=== PATIENT | male | born 1925 | race Caucasian/White ===

== ENCOUNTER 2016-04-05 09:07 | Emergency (ER) | payer OTHER, MEDICARE ==
[~2016-04-05] VITALS: Ht 182.9 cm; Wt 65.0 kg
[~2016-04-05 09:07] MED LIST: ACET-1256 PO; CHOL100010 PO; CYAN10005 PO; DIPH25CA65 PO; FERR325T51 PO; FIBER PO; HYDR-5688 PO; LEVO100T7 PO; LPR25 PO; METO25TA56 PO; MISCCAP80 PO; MULT-506 PO; NITR0.4S UT; PANT40TA PO; TAMS0.4C38 PO
[2016-04-05 09:15] VITALS: TEMP 36.8; Ht 182.9 cm; Wt 65.0 kg
[2016-04-05] MEDS ORDERED: SODIUM CHLORIDE 0.9% 500ML 500 ML IV STA ×2 (09:29→11:18)
[2016-04-05 09:53] LABS: MEAN CELL VOLUME 103.2 fL (80-100); MEAN CORPUSCULAR HEMOGLOBIN 36.5 pg (25-34); MEAN CORPUSCULAR HGB CONC 35.4 g/dl (32-36); MEAN PLATELET VOLUME 10.6 fL (7.4-10.4); PLATELET COUNT 127 K/uL (130-400); RED BLOOD COUNT 2.52 M/uL (4.7-6.1); WHITE BLOOD COUNT 6.66 K/uL (4.8-10.8)
--- NOTE | 2016-04-05 10:08 | DIAGNOSTIC IMAGING REPORT ---
TWO VIEW CHEST CLINICAL HISTORY: Cough. Dyspnea. FINDINGS: PA and lateral chest radiographs are compared to study dated 01/23/2016. Correlation is made with chest CT dated 01/19/2014. The PA view is degraded by patient rotation. The heart is enlarged and there is atherosclerotic calcification of the thoracic aorta. The pulmonary vasculature is noncongested. Emphysema and chronic interstitial thickening is similar to previous. No airspace consolidation or pleural effusion is identified. Apical scarring is noted. There is no pneumothorax. The skeletal structures are osteopenic. Degenerative change is noted in the thoracic spine. IMPRESSION: Cardiomegaly and emphysema with no active disease in the chest. Electronically signed by: Jaguar Lombardo M.D. 04/05/2016 10:06 AM Dictated Date/Time: 04/05/2016 10:04 AM
[2016-04-05 10:10] LABS: BUN/CREATININE RATIO 10.6 (10-20); CALCIUM 8.8 mg/dl (8.5-10.1); CREATININE 2.2 mg/dl (0.60-1.40); POTASSIUM 3.8 mmol/L (3.5-5.1)
[2016-04-05] MEDS ORDERED: CHOL1TAB53 PO (10:12)
[2016-04-05] MEDS ORDERED: VSNOPS OPB (10:16)
[2016-04-05] MEDS ORDERED: BENZONATATE 100MG CAP PO ONE (10:30)
[2016-04-05 10:33] LABS: ANISOCYTOSIS PRESENT; BASO % 0.6 %; BASO ABS # 0.04 K/uL (0-0.2); COMPLETE YES; EOS % 0.6 %; IG% 0.3 %; LYMPH % 34.5 %; MONO % 21.8 %; NEUT % 42.2 %; ROULEAUX 2+
[2016-04-05] MEDS ORDERED: LEVOFLOXACIN 250 MG TAB PO ONE (10:45)
[2016-04-05] MEDS ORDERED: LEVO250T47 PO (11:57)
[2016-04-05] MEDS ORDERED: BENZ100C18 PO (11:57)
[2016-04-05 12:23] VITALS: BP 152/79; PULSE 85; O2SAT 97
--- NOTE | 2016-04-05 15:19 | EMERGENCY ROOM VISIT NOTE ---
History Report prepared by Fer: Bessie Mejia Under the Supervision of: Dr. Andre Roman D.O. First contact with patient: 09:20 Chief Complaint: COUGH Stated Complaint: COUGH,SOB-BAD,CHEST CONGESTION History of Present Illness The patient is a 89 year old male who presents to the Emergency Room with complaints of a worsening productive cough that started two or three days ago. The sputum is yellow in color. The patient's states that he started experiencing rhinorrhea and sinus congestion 6 days ago. He is also experiencing shortness of breath and occasional nausea. He denies fevers greater than 100.4, chest pain, pain or burning with urination, and lower extremity edema. The patient's adds that he has a history of bronchitis and pneumonia. He denies any history of asthma or COPD. patient does have a history of A. fib but is not on any anticoagulation secondary to aggressive nosebleeds. Source of History: patient, spouse/significant other () Onset: two or three days ago Position: chest Quality: other (productive cough with yellow sputum) Timing: worsening Associated Symptoms: + SOB, + nausea, No chest pain, No fevers (greater than 100.4), No urinary symptoms (pain or burning with urination) Note: no lower extremity edema Review of Systems See HPI for pertinent positives & negatives. A total of 10 systems reviewed and were otherwise negative. Past Medical & Surgical Medical Problems: (1) Atrial fibrillation (2) Chronic back pain (3) Chronic osteoarthritis (4) Gastroesophageal reflux disease (5) GI bleed (6) Hernia repair (7) Hypothyroidism (8) peptic ulcer disease (9) Post traumatic stress disorder (PTSD) (10) Symptomatic anemia Family History Cancer Hypertension Lung disease Social History Smoking Status: Former Smoker Alcohol Use: none Marital Status: Housing Status: lives with family Occupation Status: retired Current/Historical Medications Scheduled Benzonatate (Tessalon Perles), 100 MG PO TID Cholecalciferol (D 1000), 1,000 UNIT PO 2XWK Cyanocobalamin (Vitamin B-12), 1,000 MCG PO QAM Fiber Laxative (Fiber Laxative), 1,000 UNIT PO QAM Levofloxacin (Levaquin), 250 MG PO DAILY Levothyroxine Sodium (Levothyroxine Sodium), 100 MCG PO QAM Metoprolol Tartrate (Lopressor), 25 MG PO QAM Multivitamin (Multivitamin), 1 TAB PO 2XWK Pantoprazole (Protonix), 40 MG PO QAM Probiotic Product (Probiotic), 1 CAP PO QAM Tamsulosin Hcl (Flomax), 0.4 MG PO QPM Scheduled PRN Acetaminophen (Tylenol), 500 MG PO TID PRN for Pain Diphenhydramine Hcl (Benadryl Allergy), 1 CAP PO DAILY PRN for ALLERGIES Hydrocodone/Acetaminophen 5MG/325MG ([place] 5MG/325MG), 1 TABLET PO Q4 PRN for Pain Nitroglycerin (Nitrostat), 0.4 MG UT UD PRN for Chest Pain Tetrahydrozoline Hcl (Ophth) (Visine), 2 DROPS OPB DAILY PRN for ITCHY EYES Allergies Coded Allergies: BEE STING (Verified Allergy, Mild, HIVES, SWELLING, TROUBLE BREATHING, ) Penicillins (Verified Allergy, Mild, UNKNOWN, 04/05/16) Aspirin (Verified Allergy, Unknown, contraindicated d/t hx massive bleed , 04/05/16) Ibuprofen (Verified Allergy, Unknown, contraindicated d/t hx massive blood, 04/05/16) Iodinated Diagnostic Agents (Verified Allergy, Unknown, ANAPHYLAXIS, ) Oxycodone (Verified Allergy, Unknown, CONFUSED, 04/05/16) Zolpidem (Unverified Adverse Reaction, Unknown, SEE COMMENT, 04/05/16) PT'S STATED THAT "HE SLEEP WALKS, MENTAL STATUS CHANGES, GETS AGGITATED) Uncoded Allergies: COPPERHEAD SNAKE (Allergy, Unknown, UNKNOWN, 04/05/16) Physical Exam Vital Signs Date Time Temp Pulse Resp B/P Pulse Ox O2 Delivery O2 Flow Rate FiO2 04/05/16 12:23 85 20 152/79 97 04/05/16 11:04 92 20 145/90 92 Room Air 04/05/16 10:38 104 20 117/86 97 Room Air 04/05/16 09:15 36.8 85 20 128/62 96 Room Air Physical Exam GENERAL: alert, sitting up in bed, disheveled appearing, well nourished, mild distress, non-toxic EYE EXAM: normal conjunctiva OROPHARYNX: no exudate, no erythema, lips, buccal mucosa, and tongue normal and mucous membranes are moist NECK: supple, no nuchal rigidity, no adenopathy, non-tender LUNGS: Clear to auscultation. Normal chest wall mechanics HEART: no murmurs, S1 normal and S2 normal ABDOMEN: abdomen soft, non-tender, normo-active bowel sounds, no masses, no rebound or guarding. BACK: Back is symmetrical on inspection and there is no deformity, no midline tenderness, no CVA tenderness. SKIN: no rashes and no bruising UPPER EXTREMITIES: upper extremities are grossly normal. LOWER EXTREMITIES: No pitting edema, calves equal bilaterally. NEURO EXAM: Normal sensorium, cranial nerves II-XII grossly intact, normal speech, no gross weakness of arms, no gross weakness of legs. Medical Decision & Procedures ER Provider Diagnostic Interpretation: X-ray results per the radiologist and my interpretation. TWO VIEW CHEST IMPRESSION: Cardiomegaly and emphysema with no active disease in the chest. Electronically signed by: Jaguar Lombardo M.D. 04/05/2016 10:06 AM Dictated Date/Time: 04/05/2016 10:04 AM Laboratory Results 04/05/16 09:35 Red Blood Count 2.52, Mean Corpuscular Volume 103.2, Mean Corpuscular Hemoglobin 36.5, Mean Corpuscular Hemoglobin Concent 35.4, Mean Platelet Volume 10.6, Neutrophils (%) (Auto) 42.2, Lymphocytes (%) (Auto) 34.5, Monocytes (%) ( Auto) 21.8, Eosinophils (%) (Auto) 0.6, Basophils (%) (Auto) 0.6, Neutrophils # (Auto) 2.81, Lymphocytes # (Auto) 2.30, Monocytes # (Auto) 1.45, Eosinophils # ( Auto) 0.04, Basophils # (Auto) 0.04 04/05/16 09:35 Test 04/05/16 09:35 04/05/16 09:45 White Blood Count 6.66 K/uL (4.8-10.8) Red Blood Count 2.52 M/uL (4.7-6.1) Hemoglobin 9.2 g/dL (14.0-18.0) Hematocrit 26.0 % (42-52) Mean Corpuscular Volume 103.2 fL (80-100) Mean Corpuscular Hemoglobin 36.5 pg (25-34) Mean Corpuscular Hemoglobin Concent 35.4 g/dl (32-36) Platelet Count 127 K/uL (130-400) Mean Platelet Volume 10.6 fL (7.4-10.4) Neutrophils (%) (Auto) 42.2 % Lymphocytes (%) (Auto) 34.5 % Monocytes (%) (Auto) 21.8 % Eosinophils (%) (Auto) 0.6 % Basophils (%) (Auto) 0.6 % Neutrophils # (Auto) 2.81 K/uL (1.4-6.5) Lymphocytes # (Auto) 2.30 K/uL (1.2-3.4) Monocytes # (Auto) 1.45 K/uL (0.11-0.59) Eosinophils # (Auto) 0.04 K/uL (0-0.5) Basophils # (Auto) 0.04 K/uL (0-0.2) RDW Standard Deviation 51.2 fL (36.4-46.3) RDW Coefficient of Variation 13.5 % (11.5-14.5) Immature Granulocyte % (Auto) 0.3 % Immature Granulocyte # (Auto) 0.02 K/uL (0.00-0.02) Anisocytosis PRESENT Rouleau 2+ Anion Gap 10.0 mmol/L (3-11) Est Creatinine Clear Calc Drug Dose 20.9 ml/min Estimated GFR () 29.7 Estimated GFR (Non- 25.6 BUN/Creatinine Ratio 10.6 (10-20) Calcium Level 8.8 mg/dl (8.5-10.1) Troponin I < 0.015 ng/ml (0-0.045) Influenza Type A Antigen Neg for Influ A (NEG) Influenza Type B Antigen Neg for Influ B (NEG) Laboratory results per my review. Medications Administered Medications (Trade) Dose Ordered Sig/Char Route Start Time Stop Time Status Last Admin Dose Admin Sodium Chloride (Nss 500ml) 500 ml @ 999 mls/hr Q31M STAT IV 04/05/16 09:29 04/05/16 09:59 DC 04/05/16 09:41 999 MLS/HR Benzonatate (Tessalon Perles Cap) 100 mg NOW ONCE PO 04/05/16 10:30 04/05/16 10:31 DC 04/05/16 11:05 100 MG Levofloxacin 500 mg 500 mg NOW ONCE PO 04/05/16 10:45 04/05/16 10:46 DC 04/05/16 11:05 500 MG Sodium Chloride (Nss 500ml) 500 ml @ 999 mls/hr Q31M STAT IV 04/05/16 11:18 04/05/16 11:48 DC 04/05/16 11:33 999 MLS/HR ECG Indication: SOB/dyspnea Rate (beats per minute): 163 Rhythm: atrial fibrillation Findings: PVC, left axis deviation Comparison ECG Date: 01/23/2016 Change: Atrial fibrillation has replaced sinus rhythm. Repeat EKG on 04/05/2016 showed sinus tachycardia, rate of 101, normal axis, PVC , no change from 01/18/2016 ED Course ED COURSE: Vital signs were reviewed and showed normal. The patients medical record was reviewed The above diagnostic studies were performed and reviewed. ED treatments and interventions as stated above. 0923: The patient was evaluated in room B4. A complete history and physical examination was performed. 0929: Ordered Sodium Chloride 500 ml @ 999 mls/hr IV 1028: I reassessed and updated the patient. He is doing ok. 1030: Ordered Benzonatate 100 mg PO 1045: Ordered Levofloxacin 500 mg PO 1102: I updated the patient and his family. They said not anticoagulation because he has terrible nosebleeds. 1118: Ordered Sodium Chloride 500 ml @ 999 mls/hr IV 1154: Upon reevaluation, the patient is doing well. I discussed my findings with the patient and he understands and agrees with the treatment plan. Based on the patients age, coexisting illnesses, exam and lab findings the decision to treat as an outpatient was made. The patient remained stable while under my care. The patient appeared well at the time of discharge. Medical Decision Differential diagnoses includes but is not limited to pneumonia, bronchitis, COPD/Asthma exacerbation, pneumothorax, pulmonary embolism, congestive heart failure, acute coronary syndrome. Upon review, the patient does not take aspirin due to persistent nosebleeds. Discussed with pharmacy for Levaquin dosing with renal function, recommended 250 daily. Patient is an 89-year-old male who presents the ER for a weeks worth of URI symptoms associated with runny nose and congestion. Patient denies any chest pain but does admit to getting slightly short of breath. He does admit to be all productive cough. No history of asthma or COPD. While in the ER he did have a short run of A. fib which resolved. He does have a history of this. He is not anticoagulated and they understand the risk as he has had extensive nosebleeds. His A. fib resolved. He was given a bolus normal saline. He also was given a dose of Levaquin with a negative influenza A and B. He does have a clear bronchitis based on symptoms. Chest x-ray showed no focal infiltrate. Creatinine appears to be along his baseline at 2.2. He has a stable anemia. With his creatinine we gave him a 500 dose of Levaquin here and discharged him on 250 phone discussion with pharmacy. Patient declined admission. He is discharged in short the follow-up with his PCP. Discussed with Pt concerning signs and symptoms to watch out for. Pt was instructed to follow up with their PCP and discussed with the patient their option to return to the ED at anytime for persistent or worsening symptoms. The appropriate anticipatory guidance and out-patient management, including indications for return to the emergency department, were explained at length to the patient and understood. Impression Primary Impression: Bronchitis Additional Impressions: Atrial fibrillation CKD (chronic kidney disease) Anemia Scribe Attestation The scribe's documentation has been prepared under my direction and personally reviewed by me in its entirety. I confirm that the note above accurately reflects all work, treatment, procedures, and medical decision making performed by me. Departure Information Dispostion Home / Self-Care Prescriptions Levofloxacin (LEVAQUIN) 250 Mg Tab 250 MG PO DAILY for 10 Days, TAB Prov: Andre Roman, DO 04/05/16 Benzonatate (TESSALON PERLES) 100 Mg Cap 100 MG PO TID, #30 CAP Prov: Andre Roman, DO 04/05/16 Referrals Francis Vital M.D. (PCP) Forms HOME CARE DOCUMENTATION FORM, IMPORTANT VISIT INFORMATION Patient Instructions ED Bronchitis Abx Tx, My [facility] Additional Instructions Please follow up with your primary care doctor with in the next 24 hours. Any worsening of your symptoms, please return to the ED immediately. This includes fevers greater than 100.4, trouble breathing, chest pain, passing out, or any other concerning signs or symptoms from your standpoint. Please take antibiotics as prescribed. Please take cough medicine as prescribed. Problem Qualifiers Additional Impressions: Atrial fibrillation Atrial fibrillation type: chronic Qualified Codes: I48.2 - Chronic atrial fibrillation CKD (chronic kidney disease) Chronic kidney disease stage: unspecified stage Qualified Codes: N18.9 - Chronic kidney disease, unspecified Anemia Anemia type: other cause Other causes of anemia: other cause, not classified Qualified Codes: D64.89 - Other specified anemias
[2016-04-16] MEDS ORDERED: MISCCAP80 PO (09:58)
[2016-04-16] MEDS ORDERED: CYAN100020 PO (09:58)
[2016-04-16] MEDS ORDERED: FIBER PO (09:58)
[2016-06-18] MEDS ORDERED: LEVO1TAB33 PO (06:29)
[2016-06-22] MEDS ORDERED: PRT/40 PO (08:23)
[2016-06-22] MEDS ORDERED: PRVHFAIN INH (15:40)
== END 2016-04-05 12:05 | disposition home or self-care (01) ==
LOC: C.EDB 09:08
DX: J40 Bronchitis, not specified as acute or chronic (principal); I48.2 Chronic atrial fibrillation; N18.9 Chronic kidney disease, unspecified; D64.89 Other specified anemias; Z87.01 Personal history of pneumonia (recurrent); K21.9 Gastro-esophageal reflux disease without esophagitis; E03.9 Hypothyroidism, unspecified; F43.10 Post-traumatic stress disorder, unspecified; Z82.49 Family history of ischemic heart disease and other diseases of the circulatory system; Z87.891 Personal history of nicotine dependence; Z79.899 Other long term (current) drug therapy

== ENCOUNTER → 2016-04-23 | Day surgery (SDC) | payer OTHER, MEDICARE ==
[2016-04-16 09:58] VITALS: Ht 182.9 cm; Wt 65.9 kg
[~2016-04-23] VITALS: Ht 182.9 cm; Wt 65.9 kg
[~2016-04-23] MED LIST changes: +500ML BSS 0.3ML EPI 1:1000PF IRRIG ONE; +ACETAMINOPHEN 325 MG TAB PO PRN; +AMVISC PLUS 0.8ML SYRINGE INT OCU ONE; +ATROPINE SULFATE 0.1 MG/ML 5ML SYR IV PRN; +AcetaZOLAMIDE 250 MG TAB PO SCH; +BETAXOLOL HCL 0.25% OP SUSP PER DROP CHARGE OPR SCH; +BRIMONIDINE TART 0.2% OP SOLN PER DROP CHARGE ONE; +BSS FLUSH ONE; -CHOL100010 PO; +CHOL1TAB53 PO; +CYAN100020 PO; +ENDOCOAT 0.85ML SYRINGE INT OCU ONE; +ESCI5TAB PO; +EpHEDrine SULFATE INJ 50 MG/ML AMP IV PRN; +EpINEphrine INJ 1MG/ML AMP 1 MG/ML AMP ONE; -FERR325T51 PO; +FINA5TAB PO; +LACTATED RINGER'S 1000ML 500 ML IV SCH; +LEVO1TAB33 PO; +LIDOCAINE 4% OP SOLN DROP CHARGE ONE; +LIDOCAINE 4% OP SOLN DROP CHARGE OPR SCH; +LIDOCAINE HCL 1% MPF 2 ML VIAL ONE; +METO-217 PO; -METO25TA56 PO; +MIDAZOLAM HCL 1 MG/ML 2ML VIAL ONE; +MIX: 4ML BSS 1ML EPI 1:1000 PF INSTIL ONE; +MOXIFLOXACIN OPH SOLN PER DROP CHARGE ONE; +NYSS/ PO; +OCUCOAT 1 ML SOLN IO ONE; +POVIDONE-IODINE OP SOLN 30 ML BTL ONE; +PROPARACAINE 0.5% OP SOLN PER DROP CHARGE OPR SCH; +PRT/40 PO; +PRVHFAIN INH; +SODI1TAB PO; +TOBRAMYCIN/DEXAMETHASONE OPH OINT PER APPLN CHARGE ONE; +VSNOPS OPB
--- NOTE | 2016-04-23 07:52 | History & Physical Bridge - SC ---
H&P Re-Evaluation Bridge Note: I have examined the patient, reviewed the History & Physical and in the interval since the performance of the History & Physical I have noted the following changes of clinical significance: No changes noted
[2016-04-23] MEDS: PHENYLEPHRINE HCL 2.5% OP SOLN PER DROP CHARGE OPR SCH ×2 (08:39→08:44)
[2016-04-23] MEDS: TROPICAMIDE 1% OP SOLN PER DROP CHARGE OPR SCH ×2 (08:40→08:45)
[2016-04-23] MEDS: CYCLOPENTOLATE HCL 1% OP SOLN PER DROP CHARGE OPR SCH ×2 (08:41→08:46)
[2016-04-23] MEDS: MOXIFLOXACIN OPH SOLN PER DROP CHARGE OPR SCH ×2 (08:42→08:52)
--- NOTE | 2016-04-23 09:38 | Discharge Instructions-SurgCtr ---
Discharge Instructions Visit Reason for Visit: Cataract Right Eye Discharge Discharge Diagnosis / Problem: lens implant right eye Discharge Goals Goal(s): Improve function Activity Recommendations Activity Limitations: resume your previous activity Lifting Limitations: no more than 10 pounds Exercise/Sports Limitations: gradually increase as tolerated May Resume Sexual Activity: when tolerated Shower/Bathe: tomorrow Driving or Machine Use: resume 1 day after discharge Anesthesia . Post Anesthesia Instructions: If you have had General Anesthesia or IV Sedation: * Do not drive today. * Resume driving when surgeon permits. * Do not make important decisions or sign legal documents today. * Call surgeon for: 1. Temperature elevations greater than 101 degrees F. 2. Uncontrollable pain. 3. Excessive bleeding. 4. Persistent nausea and vomiting. 5. Medication intolerance (nausea, vomiting or rash). * For nausea and vomiting use only clear liquids such as: tea, soda, bouillon until nausea subsides, then gradually increase diet as tolerated. * If you have any concerns or questions, call your surgeon's office. If physician is unavailable and it is an emergency, call 911 or go to the nearest emergency room. . Instructions / Follow-Up Instructions / Follow-Up ACTIVITY RECOMMENDATIONS: * Light activities. * Mild irritation and blurred vision are common for the first few days. * You may walk outside, read, watch television. * Redness around the white part of the eye is common. MEDICATIONS: Resume previous medications unless instructed otherwise by your surgeon. * Take white Diamox (Acetazolamide) tablet at 1 pm today. Start all eye drops at 1 pm today: * Eye drops (today and tomorrow): Prednisone - one drop in operative eye every 3 hours while awake Ofloxacin - one drop in operative eye every 3 hours while awake SPECIAL CARE INSTRUCTIONS: * Tape plastic shield over eye to sleep at night. Call your doctor at with any concerns or problems. FOLLOW UP VISIT: Follow-up with Dr Guthrie at [facility] office as scheduled. Diet Recommendations Home Diet: no limitations Procedures Procedures Performed: cataract extraction with lens implant Pending Studies Studies pending at discharge: no Medical Emergencies . Who to Call and When: Medical Emergencies: If at any time you feel your situation is an emergency, please call 911 immediately. . Non-Emergent Contact Non-Emergency issues call your: Pellet Preparation Operator Call Non-Emergent contact if: your pain is not controlled [phone] . . "Provider Documentation" section prepared by Ezequiel Guthrie.
--- NOTE | 2016-04-23 09:39 | [facility] Operative Report ---
Operative Report 1. PREOPERATIVE DIAGNOSIS: Senile cortical cataract, right eye. 2. POSTOPERATIVE DIAGNOSIS: Senile cortical cataract, right eye. 3. PROCEDURE: Phacoemulsification of right cataract with posterior chamber lens implant, type [employer], model MX60, power +20.50 diopters. ANESTHESIA: Local standby. SURGEON: Dr. Guthrie. COMPLICATIONS: None. OPERATING TIME: 10 minutes. 4. OPERATION AND FINDINGS: DESCRIPTION OF PROCEDURE: The right pupil was dilated. The anesthetic was administered using a topical technique. The right eye was prepped and draped. A speculum was placed. A clear corneal incision was formed. The chamber was filled with Amvisc Plus and Endocoat. Epinephrine solution was used. A paracentesis was placed. A capsulorrhexis was performed. The nucleus was hydrodissected. The lens was removed with phacoemulsification. Time was 4.54 seconds. The aspiration unit was used to remove the cortex. The capsule was filled with Amvisc Plus. The lens implant was folded and placed into the capsule. The incision was hydrated. The Amvisc was aspirated. The wound was secure. The chamber was deep. The pupil was round. TobraDex ointment and Vigamox solution were placed. The speculum was removed. The patient was returned to the Recovery Room in stable condition. I attest to the content of the Intraoperative Record and any orders documented therein. Any exceptions are noted below. The scribe's documentation has been prepared in my presence, under my direction and personally reviewed by me in its entirety. I confirm that the note above accurately reflects all work, treatment, procedures, and medical decision making performed by me. I personally scribed for Ezequiel Guthrie M.D. ([email or web address]) on 04/23/16 at 09:39. Electronically submitted by Maye Arias ([email or web address]).
[2016-04-23 09:41] VITALS: TEMP 36.6
--- NOTE | 2016-04-23 10:02 | Anesthesiology Progress Note ---
Anesthesia Post Op Note Date & Time Apr 23, 2016 at 10:03 Vital Signs Pain Intensity: 0 Vital Signs Past 12 Hours Date Time Temp Pulse Resp B/P Pulse Ox O2 Delivery O2 Flow Rate FiO2 04/23/16 09:41 36.6 56 18 176/85 98 Room Air 04/23/16 08:27 36.6 67 20 159/85 98 Room Air Notes Mental Status: alert / awake / arousable, participated in evaluation Pt Amnestic to Procedure: Yes Nausea / Vomiting: adequately controlled Pain: adequately controlled Airway Patency, RR, SpO2: stable & adequate BP & HR: stable & adequate Hydration State: stable & adequate Anesthetic Complications: no major complications apparent
[2016-04-23 10:13] VITALS: BP 176/79; PULSE 57; O2SAT 98
== END | disposition home or self-care (01) ==
LOC: X.SURG 08:05
PROVIDERS: ATTEND Specialist
DX: H25.011 Cortical age-related cataract, right eye (principal)

== ENCOUNTER → 2016-06-03 | Outpatient (CLI) | payer OTHER, MEDICARE ==
[~2016-06-03] MED LIST changes: -500ML BSS 0.3ML EPI 1:1000PF IRRIG ONE; -ACETAMINOPHEN 325 MG TAB PO PRN; -AMVISC PLUS 0.8ML SYRINGE INT OCU ONE; -ATROPINE SULFATE 0.1 MG/ML 5ML SYR IV PRN; -AcetaZOLAMIDE 250 MG TAB PO SCH; -BETAXOLOL HCL 0.25% OP SUSP PER DROP CHARGE OPR SCH; -BRIMONIDINE TART 0.2% OP SOLN PER DROP CHARGE ONE; -BSS FLUSH ONE; -ENDOCOAT 0.85ML SYRINGE INT OCU ONE; -EpHEDrine SULFATE INJ 50 MG/ML AMP IV PRN; -EpINEphrine INJ 1MG/ML AMP 1 MG/ML AMP ONE; -LACTATED RINGER'S 1000ML 500 ML IV SCH; -LIDOCAINE 4% OP SOLN DROP CHARGE ONE; -LIDOCAINE 4% OP SOLN DROP CHARGE OPR SCH; -LIDOCAINE HCL 1% MPF 2 ML VIAL ONE; -MIDAZOLAM HCL 1 MG/ML 2ML VIAL ONE; -MIX: 4ML BSS 1ML EPI 1:1000 PF INSTIL ONE; -MOXIFLOXACIN OPH SOLN PER DROP CHARGE ONE; -OCUCOAT 1 ML SOLN IO ONE; -POVIDONE-IODINE OP SOLN 30 ML BTL ONE; -PROPARACAINE 0.5% OP SOLN PER DROP CHARGE OPR SCH; -TOBRAMYCIN/DEXAMETHASONE OPH OINT PER APPLN CHARGE ONE
[2016-06-03 12:32] LABS: HEMATOCRIT 26.4 % (42-52); MEAN CELL VOLUME 102.7 fL (80-100); MEAN CORPUSCULAR HEMOGLOBIN 35.8 pg (25-34); MEAN CORPUSCULAR HGB CONC 34.8 g/dl (32-36); PLATELET COUNT 161 K/uL (130-400); RED BLOOD COUNT 2.57 M/uL (4.7-6.1); WHITE BLOOD COUNT 6.01 K/uL (4.8-10.8)
[2016-06-03 13:16] LABS: BASO % 0.2 %; BASO ABS # 0.01 K/uL (0-0.2); COMPLETE YES; EOS % 0.8 %; LYMPH % 52.9 %; LYMPH ABS # 3.18 K/uL (1.2-3.4); NEUT % 35.1 %
[2016-06-03 13:53] LABS: ALT/SGPT 13 U/L (12-78); BLOOD UREA NITROGEN 29 mg/dl (7-18); BUN/CREATININE RATIO 13.7 (10-20); CALCIUM 9.2 mg/dl (8.5-10.1); CARBON DIOXIDE 27 mmol/L (21-32); CHLORIDE 105 mmol/L (98-107); GLUCOSE 96 mg/dl (70-99); POTASSIUM 3.8 mmol/L (3.5-5.1); SODIUM 139 mmol/L (136-145)
[2016-06-03 13:56] LABS: ALB/GLOB RATIO 0.3 (0.9-2); ALKALINE PHOSPHATASE 61 U/L (45-117); AST/SGOT 16 U/L (15-37)
[2016-06-06 07:34] LABS: ROULEAUX 2+
== END | disposition home or self-care (01) ==
LOC: C.LABBFT 10:24
PROVIDERS: ATTEND Internal Medicine
DX: D64.9 Anemia, unspecified (principal)

== ENCOUNTER 2016-06-22 05:38 | Inpatient (IN) | payer OTHER, MEDICARE ==
[~2016-06-22] VITALS: Ht 182.9 cm; Wt 62.4 kg
[~2016-06-22 05:38] MED LIST changes: -ESCI5TAB PO; -FINA5TAB PO; -METO-217 PO; -NYSS/ PO; -PRT/40 PO; -PRVHFAIN INH; -SODI1TAB PO
--- NOTE | 2016-06-22 06:03 | EMERGENCY ROOM VISIT NOTE ---
History Report prepared by Fer: Ubaldo Jolley Under the Supervision of: Dr. Stephanie Solano D.O. First contact with patient: 05:40 Chief Complaint: CHEST PAIN Stated Complaint: CHEST PAIN History of Present Illness The patient is an 89 year old male who presents to the Emergency Room with complaints of persistent left-sided chest pain since 2199 last night. The patient went to bed with the pain. The pain persisted through this morning. The pain radiates to his left arm, and is rated 3/10 in severity. He was also having trouble breathing this morning. He has had increased generalized weakness for the past several days. This morning the patient could barely stand secondary to weakness, per his . He had a very difficult time going up his stairs this morning. He developed increased chest discomfort and shortness of breath on exertion. He has had intermittent abdominal pain for some time and denies any changes. The patient has a history of atrial fibrillation. EMS notes that the patient did not take Aspirin en route to the ED because he has had adverse reactions in the past. The patient is on a second course of Levaquin for bronchitis. He has not had much of an appetite lately. Source of History: patient, spouse/significant other, EMS Onset: 2199 last night Position: chest (left) Symptom Intensity: 3/10 Timing: other (persistent) Associated Symptoms: + SOB, + weakness Review of Systems See HPI for pertinent positives & negatives. A total of 10 systems reviewed and were otherwise negative. Past Medical & Surgical Medical Problems: (1) Atrial fibrillation (2) Chronic back pain (3) Chronic osteoarthritis (4) Gastroesophageal reflux disease (5) GI bleed (6) Hernia repair (7) Hypothyroidism (8) peptic ulcer disease (9) Post traumatic stress disorder (PTSD) (10) Symptomatic anemia Family History Cancer Hypertension Lung disease Social History Smoking Status: Former Smoker Alcohol Use: none Marital Status: Housing Status: lives with family Occupation Status: retired Current/Historical Medications Scheduled Cholecalciferol (D 1000), 1,000 UNIT PO 3XWK Cyanocobalamin (Vitamin B12), 1 TAB PO 3XWK Diphenhydramine Hcl (Benadryl Allergy), 25 MG PO HS Fiber Laxative (Fiber Laxative), 1 TAB PO DAILY Finasteride (Proscar), 5 MG PO DAILY Levofloxacin (Levaquin), 500 MG PO DAILY Levothyroxine Sodium (Levothyroxine Sodium), 100 MCG PO QAM Metoprolol Succinate (Toprol Xl), 25 MG PO DAILY Probiotic Product (Probiotic), 1 CAP PO DAILY Tamsulosin Hcl (Flomax), 0.4 MG PO QPM Scheduled PRN Acetaminophen (Tylenol), 500 MG PO TID PRN for Pain Hydrocodone/Acetaminophen 5MG/325MG (Greene 5MG/325MG), 1 TABLET PO Q6 PRN for Pain Allergies Coded Allergies: BEE STING (Verified Allergy, Mild, HIVES, SWELLING, TROUBLE BREATHING, 06/22) Penicillins (Verified Allergy, Mild, UNKNOWN, 06/22/16) Aspirin (Verified Allergy, Unknown, contraindicated d/t hx massive bleed , 06/22/16) Ibuprofen (Verified Allergy, Unknown, contraindicated d/t hx massive blood, 06/22/16) Iodinated Diagnostic Agents (Verified Allergy, Unknown, ANAPHYLAXIS, ) Oxycodone (Verified Adverse Reaction, Unknown, CONFUSED, 06/22/16) Zolpidem (Unverified Adverse Reaction, Unknown, SEE COMMENT, 06/22/16) PT'S STATED THAT "HE SLEEP WALKS, MENTAL STATUS CHANGES, GETS AGGITATED) Uncoded Allergies: COPPERHEAD SNAKE (Allergy, Unknown, UNKNOWN, 04/05/16) Physical Exam Vital Signs Date Time Temp Pulse Resp B/P Pulse Ox O2 Delivery O2 Flow Rate FiO2 06/22/16 06:45 83 18 152/74 96 Room Air 06/22/16 05:48 97 Room Air 06/22/16 05:48 36.7 86 18 153/86 97 Room Air 06/22/16 05:48 97 Room Air 06/22/16 05:47 90 Physical Exam General: Cachectic appearing male. HEENT: Head - normocephalic and atraumatic Pupils are equal, round, and reactive to light. Extraocular eye muscles are intact, and sclera are anicteric. Nose - moist nasal mucosa without discharge. Mouth - moist buccal mucosa. Oropharynx is nonerythematous and there is no tonsillar exudate or edema noted. Neck: Supple; no JVD, nuchal rigidity, cervical lymphadenopathy. Heart: Regular rate and rhythm. There is a normal S1 and S2 with no murmurs, clicks, or gallops appreciated. Lungs: Lung sounds are diminished in all stewart. Abdomen: Soft, completely nontender, nondistended, with good bowel sounds. There are no palpable pulsatile masses or hepatosplenomegaly. There is no guarding, rigidity, or rebound noted. Extremities: No evidence of cyanosis, clubbing, or edema. There are easily palpable peripheral pulses. Skin: warm and dry with good turgor and no rashes. Medical Decision & Procedures ER Provider Diagnostic Interpretation: X-ray results as stated below per interpretation by me. CHEST ONE VIEW PORTABLE: Stable cardiomegaly. No pulmonary infiltrates. Laboratory Results 06/22/16 06:10 Red Blood Count 2.70, Mean Corpuscular Volume 98.5, Mean Corpuscular Hemoglobin 35.9, Mean Corpuscular Hemoglobin Concent 36.5, Mean Platelet Volume 10.8, Neutrophils (%) (Auto) 47.4, Lymphocytes (%) (Auto) 39.1, Monocytes (%) (Auto) 13.3, Eosinophils (%) (Auto) 0.1, Basophils (%) (Auto) 0.0, Neutrophils # (Auto ) 3.44, Lymphocytes # (Auto) 2.84, Monocytes # (Auto) 0.97, Eosinophils # (Auto ) 0.01, Basophils # (Auto) 0.00 06/22/16 06:10 Test 06/22/16 06:10 White Blood Count 7.27 K/uL (4.8-10.8) Red Blood Count 2.70 M/uL (4.7-6.1) Hemoglobin 9.7 g/dL (14.0-18.0) Hematocrit 26.6 % (42-52) Mean Corpuscular Volume 98.5 fL (80-100) Mean Corpuscular Hemoglobin 35.9 pg (25-34) Mean Corpuscular Hemoglobin Concent 36.5 g/dl (32-36) Platelet Count 159 K/uL (130-400) Mean Platelet Volume 10.8 fL (7.4-10.4) Neutrophils (%) (Auto) 47.4 % Lymphocytes (%) (Auto) 39.1 % Monocytes (%) (Auto) 13.3 % Eosinophils (%) (Auto) 0.1 % Basophils (%) (Auto) 0.0 % Neutrophils # (Auto) 3.44 K/uL (1.4-6.5) Lymphocytes # (Auto) 2.84 K/uL (1.2-3.4) Monocytes # (Auto) 0.97 K/uL (0.11-0.59) Eosinophils # (Auto) 0.01 K/uL (0-0.5) Basophils # (Auto) 0.00 K/uL (0-0.2) RDW Standard Deviation 49.0 fL (36.4-46.3) RDW Coefficient of Variation 13.8 % (11.5-14.5) Immature Granulocyte % (Auto) 0.1 % Immature Granulocyte # (Auto) 0.01 K/uL (0.00-0.02) Prothrombin Time 12.0 SECONDS (9.0-12.0) Prothromb Time International Ratio 1.1 (0.9-1.1) Activated Partial Thromboplast Time 26.9 SECONDS (21.0-31.0) Partial Thromboplastin Ratio 1.0 Anion Gap 7.0 mmol/L (3-11) Est Creatinine Clear Calc Drug Dose 21.6 ml/min Estimated GFR () 31.4 Estimated GFR (Non- 27.1 BUN/Creatinine Ratio 11.1 (10-20) Calcium Level 8.7 mg/dl (8.5-10.1) Total Bilirubin 0.4 mg/dl (0.2-1) Direct Bilirubin 0.1 mg/dl (0-0.2) Aspartate Amino Transf (AST/SGOT) 18 U/L (15-37) Alanine Aminotransferase (ALT/SGPT) 13 U/L (12-78) Alkaline Phosphatase 79 U/L (45-117) Total Creatine Kinase 58 U/L (39-308) Creatine Kinase MB 1.6 ng/ml (0.5-3.6) Creatine Kinase MB Ratio 2.8 (0-3.0) Troponin I < 0.015 ng/ml (0-0.045) Pro-B-Type Natriuretic Peptide 2470 pg/ml (0-1800) Total Protein 11.6 gm/dl (6.4-8.2) Albumin 2.8 gm/dl (3.4-5.0) Laboratory results per my review. Medications Administered Medications (Trade) Dose Ordered Sig/Char Route Start Time Stop Time Status Last Admin Dose Admin Sodium Chloride (Nss 1000ml) 1,000 ml @ 250 mls/hr Q4H STAT IV 06/22/16 06:54 06/22/16 10:53 06/22/16 07:00 250 MLS/HR Procedure Medications administered include NSS IV. ECG Indication: chest pain Rate (beats per minute): 97 Rhythm: normal sinus Findings: PAC, no acute ischemic change ED Course 0545: Past medical records reviewed. The patient was evaluated in room B9. A complete history and physical exam was performed. An IV lock was initiated and labs were drawn as above. A portable chest x-ray was obtained. A twelve-lead EKG was obtained. 0654: NSS 1000 ml @ 250 mls/hr. Medicine was paged. The patient's chest pain had subsided on phone. 0655: Updated the patient. 0704: Discussed the case with Dr. Rivera, [facility]. The patient will be evaluated. Medical Decision The patient is an 89 year old male who presents to the ED with chest pain. Differential diagnosis includes medication side effects, acute renal failure, hyperglycemia, hypoglycemia, cardiac ischemia, pneumonia. Laboratory interpretation: white count 7.2, hemoglobin 9.7 which is stable for him, normal platelet count, normal coags, sodium 129, BUN 123, creatinine 2.1, glucose 94, LFTs are normal, troponin negative, BNP 2470. This is an 89-year-old male patient who presents to the emergency department with significant generalized weakness and episode of chest discomfort and shortness of breath upon exertion. The patient is on a high dose of Levaquin at this time. Sodium is low at 129. The patient had an echocardiogram personally 6 months ago which was unremarkable at that time. I've discussed the case with the [facility] and they will evaluate for further management. Consults Time Called: [phone] [facility] Returned Call: [phone]: [facility] the [facility] The patient will be evaluated. Impression Primary Impression: Left sided chest pain Additional Impressions: Hyponatremia Generalized weakness Scribe Attestation The scribe's documentation has been prepared under my direction and personally reviewed by me in its entirety. I confirm that the note above accurately reflects all work, treatment, procedures, and medical decision making performed by me. Departure Information Dispostion Being Evaluated By Hospitalist Referrals Francis Vital M.D. (PCP) Patient Instructions My [facility] Problem Qualifiers
[2016-06-22 06:17] LABS: COMPLETE YES; EOS % 0.1 %; HEMATOCRIT 26.6 % (42-52); IG% 0.1 %; LYMPH % 39.1 %; LYMPH ABS # 2.84 K/uL (1.2-3.4); MEAN CELL VOLUME 98.5 fL (80-100); MEAN CORPUSCULAR HEMOGLOBIN 35.9 pg (25-34); MEAN CORPUSCULAR HGB CONC 36.5 g/dl (32-36); MEAN PLATELET VOLUME 10.8 fL (7.4-10.4); MONO % 13.3 %; NEUT % 47.4 %; PLATELET COUNT 159 K/uL (130-400); WHITE BLOOD COUNT 7.27 K/uL (4.8-10.8)
[2016-06-22] MEDS ORDERED: FINA5TAB PO (06:33)
[2016-06-22] MEDS ORDERED: METO-217 PO (06:33)
[2016-06-22 06:38] LABS: INR 1.1 (0.9-1.1)
[2016-06-22 06:53] LABS: ALT/SGPT 13 U/L (12-78); AST/SGOT 18 U/L (15-37); BLOOD UREA NITROGEN 23 mg/dl (7-18); BUN/CREATININE RATIO 11.1 (10-20); CALCIUM 8.7 mg/dl (8.5-10.1); CARBON DIOXIDE 26 mmol/L (21-32); CHLORIDE 96 mmol/L (98-107); GLUCOSE 94 mg/dl (70-99); POTASSIUM 3.7 mmol/L (3.5-5.1); SODIUM 129 mmol/L (136-145)
[2016-06-22] MEDS ORDERED: SODIUM CHLORIDE 0.9% 1000ML 1,000 ML IV STA (06:54)
--- NOTE | 2016-06-22 06:54 | DIAGNOSTIC IMAGING REPORT ---
CHEST ONE VIEW PORTABLE CLINICAL HISTORY: Chest pain. COMPARISON STUDY: Chest radiograph April 05, 2016. FINDINGS: No pneumothorax or pleural effusion is present. There is no evidence of pulmonary edema. Cardiomediastinal silhouette is stable. Right apical opacity is unchanged and likely reflects scarring. IMPRESSION: No acute cardiopulmonary findings. Electronically signed by: Mele Torres M.D. 06/22/2016 6:52 AM Dictated Date/Time: 06/22/2016 6:50 AM
[2016-06-22 06:59] LABS: ALKALINE PHOSPHATASE 79 U/L (45-117); CKMB/CK RATIO 2.8 (0-3.0)
[2016-06-22] MEDS ORDERED: POLYETHYLENE (MIRALAX) 17 GM PACK PO PRN (08:15)
[2016-06-22] MEDS ORDERED: MAGNESIUM HYDROXIDE SUSP 30 ML UDC PO PRN (08:15)
[2016-06-22] MEDS ORDERED: ONDANSETRON INJ 2 MG/ML 2 ML VIAL IV PRN (08:15)
[2016-06-22] MEDS ORDERED: ALUMINUM/MAGNESIUM/SIMETH (MAALOX MAX) 30 ML UDC PO PRN (08:15)
[2016-06-22] MEDS ORDERED: NITROGLYCERIN 0.4 MG SL PER TAB CHARGE SL PRN (08:15)
[2016-06-22] MEDS ORDERED: PANT40TA2 PO (08:23)
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
[2016-06-22] MEDS: LEVOTHYROXINE 100 MCG TAB PO SCH (13:33)
[2016-06-22] MEDS: METOPROLOL SUCC 50MG EXT REL TAB PO SCH ×2 (13:34→23:33)
[2016-06-22] MEDS: PANTOprazole SOD 40 MG TAB PO SCH (13:34)
[2016-06-22] MEDS: LACTOBACILLUS ACIDOPHILUS (FLORANEX) TAB PO SCH (13:35)
[2016-06-22] MEDS: SODIUM CHLORIDE 0.9% 1000ML 1,000 ML IV SCH ×2 (13:35→20:45)
[2016-06-22] MEDS: HEPARIN SOD 5000 UNIT/0.5 ML CARP SQ SCH ×2 (13:36→19:49)
[2016-06-22] MEDS: LEVOFLOXACIN 500 MG TAB PO SCH (13:50)
[2016-06-22 14:49] VITALS: BP 177/92; TEMP 36.7; Ht 182.9 cm; Wt 62.4 kg
[2016-06-22 14:52] VITALS: O2SAT 98
[2016-06-22 15:32] VITALS: BP 157/63; PULSE 80; TEMP 36.6; O2SAT 98
[2016-06-22] MEDS ORDERED: PRVHFAIN INH (15:40)
--- NOTE | 2016-06-22 15:41 | Discharge Instructions ---
Discharge Instructions Date of Service Jun 22, 2016. Admission Reason for Admission: Left Sided Chest Pain Discharge Discharge Diagnosis / Problem: chest pain/weakness due to repeated respiratory infections Discharge Goals Goal(s): Diagnostic testing, Therapeutic intervention Activity Recommendations Activity Limitations: resume your previous activity . Instructions / Follow-Up Instructions / Follow-Up You were admitted to [facility] with chest pain and diagnosed with chest pain due to acute bronchitis. During your stay here you were treated with intravenous fluids and medications. A cardiac workup was completed and was negative. 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 You did not want further workup of this so plans were made to discharge on hospice care. Have your PCP, Dr. Vital follow up with you within 1 week. Please discuss repeat blood work with him at that time. Continue taking all other medications as prescribed. Current Hospital Diet Patient's current hospital diet: AHA Diet (Heart Healthy) Discharge Diet Recommended Diet: Regular Diet Pending Studies Studies pending at discharge: no Medical Emergencies . Who to Call and When: Medical Emergencies: If at any time you feel your situation is an emergency, please call 911 immediately. . Non-Emergent Contact Non-Emergency issues call your: Primary Care Provider Call Non-Emergent contact if: you have a fever, temperature is above 100.5, your pain is not controlled, your pain is worsening, your pain is unusual for you, your pain is concerning you, you have any medication questions . Past History Medical & Surgical History: (1) Hyponatremia (2) CKD (chronic kidney disease) (3) Major depressive disorder, recurrent severe without psychotic features (4) Left sided chest pain (5) Generalized weakness (6) Atrial fibrillation . "Provider Documentation" section prepared by Andre Rivera. Attending Attestation: I agree with the discharge instructions as outlined by Dr. Andre Rivera and ERNIE Cantor. Kai Clark MD VTE Core Measure Inpt VTE Proph given/why not?: Unfractionated heparin SQ, T.E.D. Stockings, SCD 's
[2016-06-22 19:25] VITALS: BP_SYST 191; BP_SYST 194; BP_DIAS 103; BP_DIAS 97; PULSE 92; TEMP 36.7; O2SAT 98
[2016-06-22] MEDS: TAMSULOSIN HCL 0.4 MG CAP PO SCH (20:46)
[2016-06-22 21:06] VITALS: BP 185/95; PULSE 91
[2016-06-22 23:03] LABS: CKMB/CK RATIO 3.5 (0-3.0)
[2016-06-22 23:14] VITALS: BP 192/94; PULSE 88; TEMP 36.8; O2SAT 96
[2016-06-23 03:38] VITALS: BP 182/84; PULSE 84; TEMP 36.4; O2SAT 97
[2016-06-23] MEDS: HEPARIN SOD 5000 UNIT/0.5 ML CARP SQ SCH ×3 (03:55→21:57)
[2016-06-23] MEDS ORDERED: COUGH DROP (SUGAR FREE) LOZ 24 LOZ/1 BOX ONE (03:59)
[2016-06-23] MEDS ORDERED: NURSING VERBAL MED ORDER ONE (04:00)
[2016-06-23] MEDS ORDERED: COUGH DROP (SUGAR FREE) LOZ 24 LOZ/1 BOX PO PRN (04:15)
[2016-06-23] MEDS: LEVOTHYROXINE 100 MCG TAB PO SCH (05:33)
[2016-06-23] MEDS: SODIUM CHLORIDE 0.9% 1000ML 1,000 ML IV SCH (05:34)
[2016-06-23 06:45] LABS: HEMATOCRIT 24.7 % (42-52); MEAN CELL VOLUME 97.6 fL (80-100); MEAN CORPUSCULAR HEMOGLOBIN 34.4 pg (25-34); MEAN CORPUSCULAR HGB CONC 35.2 g/dl (32-36); MEAN PLATELET VOLUME 10.2 fL (7.4-10.4); PLATELET COUNT 148 K/uL (130-400); RED BLOOD COUNT 2.53 M/uL (4.7-6.1); WHITE BLOOD COUNT 6.59 K/uL (4.8-10.8)
[2016-06-23 07:16] LABS: BUN/CREATININE RATIO 8.8 (10-20); CALCIUM 8.3 mg/dl (8.5-10.1); POTASSIUM 3.7 mmol/L (3.5-5.1)
[2016-06-23 07:49] VITALS: BP 134/61; PULSE 80; TEMP 36.3; O2SAT 96
[2016-06-23] MEDS: PANTOprazole SOD 40 MG TAB PO SCH (07:57)
[2016-06-23] MEDS: LACTOBACILLUS ACIDOPHILUS (FLORANEX) TAB PO SCH (07:57)
[2016-06-23] MEDS: METOPROLOL SUCC 50MG EXT REL TAB PO SCH (07:57)
[2016-06-23 08:00] VITALS: O2SAT 96
--- NOTE | 2016-06-23 09:19 | Hospitalist Progress Note ---
Hospitalist Progress Note Date of Service Jun 23, 2016. (Yadira Cantor PA-C) Subjective Pt evaluation today including: conversation w/ patient, physical exam, chart review, lab review, review of studies, review of inpatient medication list Pain: None PO Intake: Good Voiding: no voiding problems The patient was seen and examined this morning. Pt reports doing well this morning. He is sitting up in bedside chair eating breakfast. Patient appears to be slightly confused this morning as he is not sure where he is initially, patient is very concerned about getting home to his who is in poor health. The patient's speech is clear and he answers questions otherwise appropriately. Discussion was held regarding blood work, and that is negative for any cardiac ischemia, or heart attack. He denies any acute complaints. Patient denies any chest pain, shortness of breath, palpitation, flutter, headache. Additional Comments: ROS: Constitutional: No fever, chills, sweats, fatigue or weakness Eyes: No diplopia, no changes in vision ENT: No sore throat, tinnitus, or trouble swallowing Respiratory: No shortness of breath, No dyspnea at rest or on exertion, no cough or sputum Cardiovascular: No chest pain, palpitations, or flutter Abdomen: No pain, No constipation, No diarrhea, No nausea, No vomiting Musculoskeletal: No calf pain, No joint pain, No swelling Genitourinary : No dysuria or urinary frequency, No hematuria Neurologic: No numbness/tingling, no difficulty with ambulation, no sensory or motor deficits Psychiatric: No depression or anxiety symptoms Endocrine: No fatigue, No weight changes Integumentary: No itch, No rash (Yadira Cantor PA-C) Objective Vital Signs Date Time Temp Pulse Resp B/P Pulse Ox O2 Delivery O2 Flow Rate FiO2 06/23/16 07:49 36.3 80 16 134/61 96 Room Air 06/23/16 04:00 Room Air 06/23/16 03:38 36.4 84 18 182/84 97 Room Air 06/23/16 00:00 Room Air 06/22/16 23:14 36.8 88 14 192/94 96 Room Air 06/22/16 21:06 91 185/95 06/22/16 20:00 Room Air 06/22/16 19:25 36.7 92 20 191/97 98 Room Air 194/103 06/22/16 16:00 Room Air 06/22/16 15:32 36.6 80 16 157/63 98 06/22/16 14:52 98 Room Air 06/22/16 14:49 36.7 18 177/92 06/22/16 09:39 90 18 177/92 98 Room Air (Yadira Cantor PA-C) Physical Exam Notes: General: awake, alert, no apparent distress Head: Normocephalic, atraumatic ENT: PERRL, EOMI, no pharyngeal exudate, mucous membranes moist Chest: Clear to auscultation, on room air, no adventitious breath sounds Cardiac: Regular rate and rhythm, no murmur, no JVD, normal peripheral pulses, good capillary refill Abdominal: NABS x 4 quadrants, soft, nontender to palpation, no rebound, guarding or tenderness Extremities: Normal inspection, no peripheral edema or erythema, calfs nontender to palpation Psych: Normal mood and affect Neuro: Oriented to self, time, but not to location initially. At the end of the exam I re-asked the question of where he is; "[place]where [place] ". Short-term memory appears to be impaired. Strength intact bilaterally and related 5/5, no motor deficits, speech is clear, no peripheral sensory deficits , follows commands clearly. (Yadira Cantor, TUAN) Laboratory Results Last 24 Hours Test 06/22/16 15:17 06/22/16 22:17 06/23/16 06:04 06/23/16 08:01 Total Creatine Kinase 46 U/L 54 U/L Creatine Kinase MB 1.4 ng/ml 1.9 ng/ml Creatine Kinase MB Ratio 3.0 3.5 Troponin I < 0.015 ng/ml < 0.015 ng/ml White Blood Count 6.59 K/uL Red Blood Count 2.53 M/uL Hemoglobin 8.7 g/dL Hematocrit 24.7 % Mean Corpuscular Volume 97.6 fL Mean Corpuscular Hemoglobin 34.4 pg Mean Corpuscular Hemoglobin Concent 35.2 g/dl RDW Standard Deviation 48.7 fL RDW Coefficient of Variation 13.7 % Platelet Count 148 K/uL Mean Platelet Volume 10.2 fL Sodium Level 130 mmol/L Potassium Level 3.7 mmol/L Chloride Level 98 mmol/L Carbon Dioxide Level 23 mmol/L Anion Gap 9.0 mmol/L Blood Urea Nitrogen 18 mg/dl Creatinine 2.00 mg/dl Est Creatinine Clear Calc Drug Dose 22.7 ml/min Estimated GFR () 33.3 Estimated GFR (Non- 28.7 BUN/Creatinine Ratio 8.8 Random Glucose 117 mg/dl Calcium Level 8.3 mg/dl (Yadira Cantor PA-C) Assessment and Plan 89 y/o male with a history of A. fib, hypertension, anxiety and PTSD, CKD stage III, BPH, GERD, h/o BCC of the face, h/o SCC of the skin, hypothyroidism and clonal protein disease who presented to the ED on 06/22 with left-sided chest pain. Accompanying symptoms include lightheadedness, shortness of breath, weakness and nausea. Patient received 3 doses of nitroglycerin en route to the ED without any relief. Patient afebrile, vital signs stable. CXR shows no acute disease. EKG shows sinus rhythm and no acute ischemic changes. Initial cardiac enzymes negative. Hemoglobin 9.7, which is around patient's baseline. Sodium low at 129. Creatinine slightly elevated at baseline at 2.1. Chest pain--patient recovering from acute bronchitis and had significant coughing for a week, chest pain might may be secondary to this - Patient states that he had sternal chest burning, felt like indigestion -Cardiac biomarkers were negative 3 - EKGs q am and prn with chest pain- negative - Patient had an echo on 12/03/15 with a normal LVEF and no wall motion abnormalities - Move out of tele Hyponatremia - Sodium only slightly improved to 130 - D/C NSS for now as patient has good oral intake. Pt was encouraged to drink. This is not a chronic issue per EMR up to 5 years ago. - Continue to monitor with prp MGUS - elevated IgG kappa in Feb 2012, also noticed an elevated albumin ~12 on PRP. 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 AYESHA on CKD stage III--baseline creatinine 1.8. BUN elevated at 23, likely represents dehydration secondary to acute illness -Creatinine only slightly improved to 2.0 - Stopped IVF as the patient has good oral intake. - Continue to monitor Acute bronchitis--patient started on Levaquin on 06/18, did not take 06/22 dose yet. Patient no longer complaining of coughing or wheezing -Continue Levaquin 500 mg PO qd x 2 more days to finish 7 day course as prescribed Atrial fibrillation/HTN--currently in sinus rhythm. BP stable -Continue metoprolol succinate 25 mg PO qd Memory impairment - Pt appears to have short-term memory impairment, he was not initially oriented to place during my exam and seemed to be slightly confused. Pt is concentrated on getting home to his , as she is in poor physical health. We will attempt to discuss with family about the patient's mental baseline. Phone call was placed to the at home at approximately 9:10 AM although there was no answer. - Please see attending addendum for discussion held with at bedside. BPH -Continue Flomax 0.4 mg PO qhs Hypothyroidism -Continue Synthroid 100 g PO qd GERD -Continue pantoprazole 40 mg PO qd DVT prophylaxis -Heparin 5000 units SC q8h -ANA pierson and SCDs Code Status -Level V, DO NOT RESUSCITATE Disposition: Patient from home, Likely discharge within 1 day (Yadira Cantor, TUAN) Attending Attestation: Pt seen/examined, chart reviewed, care plan d/w ERNIE Cantor. I agree w/ the foster components of her documentation. During my visit the patient was confused; he thought he was at [facility]. at bedside; confirms her was confused most of the AM. 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 confirms 20+ weight loss over the last few months. Has c/o lower abdominal pain intermittently. VSS no fever gen - thin, cacechtic neck - no JVD heart - RRR lungs - mild end-exp wheeze, mild decreased BS bases abd - soft, NT ext - no edema A/P: 1. encephalopathy, metabolic? 2nd to hyponatremia - cont to monitor, Rx the low Na. 2. hyponatremia - hypovolemic? send serum osm, urine osm, urine Na repeat Na in am. 3. weight loss - cbc findings, elevated total protein, rouleux on smear - all concerning for multiple myeloma. will d/w about options for Rx. 4. protein calorie malnutrition - severe. MVI, boost, etc 5. acute bronchitis - resolving; finish abx course. 6. PT, OT evals 7. concern of dysphagia - speech eval. 8. back pain - chronic - in light of concern for MM will check l-spine x-rays. 9. abd pain - check abd x-rays updated Kai Clark MD (Kai Clark MD)
[2016-06-23 11:28] VITALS: BP 184/91; PULSE 77; TEMP 36.5; O2SAT 99
[2016-06-23] MEDS: LEVOFLOXACIN 500 MG TAB PO SCH (11:41)
--- NOTE | 2016-06-23 13:28 | DIAGNOSTIC IMAGING REPORT ---
ABDOMEN 2 VIEWS HISTORY: EVAL FOR CONSTIPATION, ETC. Left lower quadrant abdominal pain. COMPARISON: None. FINDINGS: No pneumoperitoneum. No pneumatosis. The lung bases are clear. Multiple nondilated gas-filled loops of large and small bowel seen throughout the abdomen. No evidence for bowel obstruction. Large amount well-formed stool seen within the rectum. No renal calculi. IMPRESSION: 1. Large amount of well-formed stool seen within the rectum. 2. No evidence for bowel obstruction. Electronically signed by: Mendoza Watters M.D. 06/23/2016 1:26 PM Dictated Date/Time: 06/23/2016 1:25 PM
[2016-06-23] MEDS ORDERED: BISACODYL 10 MG SUPP PR ONE (13:45)
[2016-06-23 15:55] VITALS: BP 164/94; PULSE 84; TEMP 36.4; O2SAT 98
--- NOTE | 2016-06-23 16:44 | DIAGNOSTIC IMAGING REPORT ---
LUMBAR SPINE 5 VIEWS CLINICAL HISTORY: Low back pain. FINDINGS: Five views of the lumbar spine are correlated with abdominal CT dated 11/12/2014. The skeletal structures are osteopenic. There is no radiographic evidence of fracture or malalignment. Vertebral body height and alignment are maintained throughout the lumbar spine. The transverse and spinous processes appear intact. There is no evidence of spondylolysis. Small anterior osteophytes are seen throughout. Moderate to advanced degenerative disc space narrowing seen at all lumbar levels. This is greatest at L1-L2, L4-L5, and L5-S1 where there is associated endplate sclerosis. Facet arthropathy is seen in the mid to lower lumbar spine. The bony pelvis is intact as imaged. There is degenerative sclerosis of the sacroiliac joints. A nonobstructed abdominal bowel gas pattern is observed. There is atherosclerotic calcification of the abdominal aorta. The heart appears enlarged. IMPRESSION: 1. No acute bony abnormality is seen involving the lumbosacral spine. 2. Osteopenia and lumbosacral spondylosis as above. Dictated: 06/23/2016 3:58 PM Transcribed: 06/23/2016 4:43 PM TEVIN_Kit Electronically signed by: Jaguar Lombardo M.D. 06/24/2016 7:04 AM Dictated Date/Time: 06/23/2016 3:58 PM
[2016-06-23 17:48] VITALS: O2SAT 98
[2016-06-23] MEDS: TAMSULOSIN HCL 0.4 MG CAP PO SCH (21:45)
[2016-06-24] VITALS (7 sets, daily range): BP systolic 129–184; BP diastolic 74–99; PULSE 78–94; TEMP 36.4–36.8; O2SAT 97–98
[2016-06-24] MEDS: HEPARIN SOD 5000 UNIT/0.5 ML CARP SQ SCH ×4 (05:52→21:34)
[2016-06-24 07:02] LABS: MEAN CELL VOLUME 98.1 fL (80-100); MEAN CORPUSCULAR HGB CONC 36.7 g/dl (32-36); MEAN PLATELET VOLUME 9.8 fL (7.4-10.4); PLATELET COUNT 141 K/uL (130-400); RED BLOOD COUNT 2.14 M/uL (4.7-6.1); WHITE BLOOD COUNT 5.78 K/uL (4.8-10.8)
[2016-06-24 07:14] LABS: BUN/CREATININE RATIO 10.3 (10-20); CREATININE 2.1 mg/dl (0.60-1.40); POTASSIUM 3.9 mmol/L (3.5-5.1)
[2016-06-24] MEDS: LEVOTHYROXINE 100 MCG TAB PO SCH (07:25)
--- NOTE | 2016-06-24 07:42 | Hospitalist Progress Note ---
Hospitalist Progress Note Date of Service Jun 24, 2016. (Yadira Cantor PA-C) Subjective Pt evaluation today including: conversation w/ patient, conversation w/ family , physical exam, chart review, lab review, review of studies, review of inpatient medication list The patient was seen and examined this morning. Pt reports he's doing well today , slept overnight but is still slightly tired. His is present at bedside and states she thinks he looks better today than last few days. Pt also reports eating most of his breakfast. He denies any new or acute complaints. Additional Comments: Constitutional: No fever, chills, sweats,+ tired today Eyes: No diplopia, no changes in vision ENT: No sore throat, tinnitus, or trouble swallowing Respiratory: No shortness of breath, No dyspnea at rest or on exertion, no cough or sputum Cardiovascular: No chest pain, palpitations, or flutter Abdomen: No pain, No constipation, No diarrhea, No nausea, No vomiting Musculoskeletal: No calf pain, No joint pain, No swelling Genitourinary : No dysuria or urinary frequency, No hematuria Neurologic: No numbness/tingling, no difficulty with ambulation, no sensory or motor deficits Psychiatric: No depression or anxiety symptoms Endocrine: No fatigue, No weight changes Integumentary: No itch, No rash (Yadira Cantor PA-C) Objective Vital Signs Date Time Temp Pulse Resp B/P Pulse Ox O2 Delivery O2 Flow Rate FiO2 06/24/16 00:01 Room Air 06/23/16 17:48 98 Room Air 06/23/16 15:55 36.4 84 18 164/94 98 Room Air 06/23/16 11:28 36.5 77 16 184/91 99 Room Air 06/23/16 08:00 96 Room Air 06/23/16 07:49 36.3 80 16 134/61 96 Room Air (Yadira Cantor PA-C) Physical Exam Notes: General: awake, alert, no apparent distress + appears tired today Head: Normocephalic, atraumatic ENT: PERRL, EOMI, no pharyngeal exudate, mucous membranes moist Chest: Clear to auscultation, on room air, no adventitious breath sounds, + Pectus excavatum Cardiac: Regular rate and rhythm, no murmur, no JVD, normal peripheral pulses, good capillary refill Abdominal: NABS x 4 quadrants, soft, nontender to palpation, no rebound, guarding or tenderness Extremities: Normal inspection, no peripheral edema or erythema, calfs nontender to palpation Psych: Normal mood and affect Neuro: AAO x 3, strength intact bilaterally and related 5/5, no motor deficits, speech is clear, no peripheral sensory deficits (Yadira Cantor PA-C) Laboratory Results Last 24 Hours Test 06/23/16 09:56 06/23/16 22:20 06/24/16 06:40 Osmolality 281 mOsm/kg Urine Osmolality 254 mOms/kg Urine Random Sodium 88 mEq/L White Blood Count 5.78 K/uL Red Blood Count 2.14 M/uL Hemoglobin 7.7 g/dL Hematocrit 21.0 % Mean Corpuscular Volume 98.1 fL Mean Corpuscular Hemoglobin 36.0 pg Mean Corpuscular Hemoglobin Concent 36.7 g/dl RDW Standard Deviation 49.5 fL RDW Coefficient of Variation 13.8 % Platelet Count 141 K/uL Mean Platelet Volume 9.8 fL Sodium Level 134 mmol/L Potassium Level 3.9 mmol/L Chloride Level 102 mmol/L Carbon Dioxide Level 25 mmol/L Anion Gap 7.0 mmol/L Blood Urea Nitrogen 22 mg/dl Creatinine 2.10 mg/dl Est Creatinine Clear Calc Drug Dose 21.8 ml/min Estimated GFR () 31.4 Estimated GFR (Non- 27.1 BUN/Creatinine Ratio 10.3 Random Glucose 94 mg/dl Calcium Level 8.0 mg/dl (Yadira Cantor PA-C) Assessment and Plan 89 y/o male with a history of A. fib, hypertension, anxiety and PTSD, CKD stage III, BPH, GERD, h/o BCC of the face, h/o SCC of the skin, hypothyroidism and clonal protein disease who presented to the ED on 06/22 with left-sided chest pain. Accompanying symptoms include lightheadedness, shortness of breath, weakness and nausea. Patient received 3 doses of nitroglycerin en route to the ED without any relief. Patient afebrile, vital signs stable. CXR shows no acute disease. EKG shows sinus rhythm and no acute ischemic changes. Initial cardiac enzymes negative. Hemoglobin 9.7, which is around patient's baseline. Sodium low at 129. Creatinine slightly elevated at baseline at 2.1. Metabolic encephalopathy secondary to hyponatremia - Pt appears to have short-term memory impairment worsening over past 6 months per - overall resolved at this time. SIADH - Sodium slightly low, will start the pt on salt tabs prior to discharge, Na+ 133 today serum psp=131, urine sjx=416, urine Na=88 Acute on Chronic Anemia MGUS - elevated IgG kappa in Feb 2012, also noticed an elevated albumin ~12 on PRP. 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 - Discussion was held with patient, and daughter(Lynda), regarding hospice. They are all in agreement that d/c on hospice would be the best thing. They already have approval from [facility] for hospice per CM. I have asked to come discuss any further questions with them. Hopefully can d/c later today or tomorrow. - POLST filled out today at bedside. Chronic Back Pain - Spinal xrays showing osteopenia throughout, degenerative disk disease of the lumbar spine. No lytic lesions as there is concern for multiple myeloma. Chest pain--patient recovering from acute bronchitis and had significant coughing for a week, was likely secondary to this. - Patient states that he had sternal chest burning, felt like indigestion - Cardiac biomarkers were negative 3 - EKGs q am and prn with chest pain- negative - Patient had an echo on 12/03/15 with a normal LVEF and no wall motion abnormalities AYESHA on CKD stage IV - Creatinine 2.2 today, likely 2.1-2.2 his new baseline. Continue to encourage oral hydration - pt is doing better with oral intake in general today than since admitted. Acute bronchitis--patient started on Levaquin on 06/18 Finished course of Levaqin, no further symptoms or complaints regarding URI/ bronchitis Atrial fibrillation/HTN--currently in sinus rhythm. BP stable -Continue metoprolol succinate 25 mg PO qd Protein Calorie Malnutrition - Severe, continue boost, MVI - Passed speech eval at bedside on 06/23 Depression/Anxiety PTSD - Appreciate psychiatric recs and initiation of Lexapro 5 mg. [facility]. BPH -Continue Flomax 0.4 mg PO qhs Hypothyroidism -Continue Synthroid 100 g PO qd GERD -Continue pantoprazole 40 mg PO qd DVT ppx: Heparin 5000 units SC q8, TEDs, SCDs Code Status: DNR Disposition: Patient from home, Likely discharge later today or tomorrow (Yadira Cantor, TUAN) Attending Attestation: Pt seen/examined, chart reviewed, care plan d/w PA Charlotte Cantor. I agree w/ the foster components of her documentation. Pt stated to me "I feel good" and he is anxious to go home. he talks about how uncomfortable the bed is. he went off on multiple tangents during our discussion. /[id number] at bedside. Physical therapy recommending rehab stay but patient adamant about going home. we had lengthy talk as well about concern of multiple myeloma - declines bone marrow bx and/or other work-up. confusion better. had bowel movements. eating is improved. VSS no fever gen - thin, cacechtic neck - no JVD heart - RRR lungs - mild end-exp wheeze abd - soft, NT, no splenomegaly ext - no edema neuro - gait unsteady psych - more oriented today A/P: 1. encephalopathy, metabolic - improving slowly 2. hyponatremia - improved; repeat BMP am for stability 3. weight loss - concerned that it is 2nd to smoldering multiple myeloma; pt refusing additional work-up and/or Rx counseled he likely will continue to lose weight due to lack of treatment for bone marrow issue 4. protein calorie malnutrition - severe. MVI, boost, etc 5. acute bronchitis - resolving; finish abx course. 6. PT, OT evals appreciated 7. constipation - improved 8. acute/chronic anemia - repeat CBC in am; if any lower hemoglobin then transfuse if desired by patient updated at bedside Kai Clark MD (Kai Clark MD)
[2016-06-24] MEDS ORDERED: BOOST VANILLA PO SCH ×2 (08:00)
[2016-06-24] MEDS: LACTOBACILLUS ACIDOPHILUS (FLORANEX) TAB PO SCH (09:36)
[2016-06-24] MEDS: PANTOprazole SOD 40 MG TAB PO SCH (09:36)
[2016-06-24] MEDS: METOPROLOL SUCC 50MG EXT REL TAB PO SCH (09:41)
[2016-06-24] MEDS: CEROVITE ADV FORMULA TAB PO SCH (09:41)
[2016-06-24] MEDS: ACETAMINOPHEN 325 MG TAB PO PRN (09:48)
[2016-06-24] MEDS: LEVOFLOXACIN 500 MG TAB PO SCH (11:19)
[2016-06-24] MEDS ORDERED: LORAZEPAM 0.5 MG TAB PO PRN (16:00)
[2016-06-24] MEDS: BOOST VANILLA PO SCH ×2 (17:08)
[2016-06-24] MEDS ORDERED: SODIUM CHLORIDE 0.65% NA SOLN 45 ML (OCEAN) PRN (19:45)
[2016-06-24] MEDS: TAMSULOSIN HCL 0.4 MG CAP PO SCH (21:24)
[2016-06-25] MEDS: HEPARIN SOD 5000 UNIT/0.5 ML CARP SQ SCH ×3 (06:00→21:19)
[2016-06-25] MEDS: LEVOTHYROXINE 100 MCG TAB PO SCH (06:24)
[2016-06-25 07:20] VITALS: BP 153/74; PULSE 92; TEMP 36.5; O2SAT 96
[2016-06-25] MEDS: LACTOBACILLUS ACIDOPHILUS (FLORANEX) TAB PO SCH (07:59)
[2016-06-25] MEDS: METOPROLOL SUCC 50MG EXT REL TAB PO SCH (07:59)
[2016-06-25] MEDS: CEROVITE ADV FORMULA TAB PO SCH (08:00)
[2016-06-25] MEDS: PANTOprazole SOD 40 MG TAB PO SCH (08:00)
[2016-06-25] MEDS: BOOST VANILLA PO SCH ×4 (08:10→16:57)
[2016-06-25 08:15] VITALS: O2SAT 96
--- NOTE | 2016-06-25 11:40 | DIAGNOSTIC IMAGING REPORT ---
CT SCAN OF THE BRAIN WITHOUT IV CONTRAST CLINICAL HISTORY: Change in mental status. COMPARISON STUDY: CT of the brain dated 11/22/2015. TECHNIQUE: Unenhanced axial CT scan of the brain is performed from the vertex to the skull base. CT DOSE: 614.27 mGy.cm FINDINGS: Brain parenchyma: There are age-related involutional changes noting advanced confluent subcortical and periventricular microangiopathic change. There is no hemorrhage, mass effect, or evidence of acute territorial ischemia by CT criteria. Ortiz-white matter is preserved. No extra-axial fluid collection is seen. Ventricles, sulci, cisterns: Prominent secondary to involutional change. Intracranial vasculature: There is atherosclerotic calcification of the cavernous carotid and vertebral arteries. Calvarium: Unremarkable. Sinuses and mastoids: The visualized paranasal sinuses are clear. The mastoid air cells are well pneumatized. Orbits: The bony orbits are grossly intact. There are bilateral ocular lens implants. IMPRESSION: Senescent changes as above with no hemorrhage, mass effect, or evidence of acute territorial ischemia by CT criteria. Electronically signed by: Jaguar Lombardo M.D. 06/25/2016 11:38 AM Dictated Date/Time: 06/25/2016 11:37 AM
[2016-06-25 12:00] VITALS: BP 127/71; PULSE 85; TEMP 36.7; O2SAT 98
[2016-06-25] MEDS ORDERED: ESCITALOPRAM OXALATE 10 MG TAB PO ONE (12:59)
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
[2016-06-25 13:28] LABS: HEMATOCRIT 23.8 % (42-52); MEAN CELL VOLUME 96.7 fL (80-100); MEAN CORPUSCULAR HEMOGLOBIN 34.1 pg (25-34); MEAN CORPUSCULAR HGB CONC 35.3 g/dl (32-36); MEAN PLATELET VOLUME 9.9 fL (7.4-10.4); PLATELET COUNT 165 K/uL (130-400); RED BLOOD COUNT 2.46 M/uL (4.7-6.1); WHITE BLOOD COUNT 7.11 K/uL (4.8-10.8)
[2016-06-25 14:04] LABS: BUN/CREATININE RATIO 11.5 (10-20); CREATININE 2.2 mg/dl (0.60-1.40)
[2016-06-25 14:10] LABS: CALCIUM 8.9 mg/dl (8.5-10.1)
[2016-06-25 15:10] VITALS: BP 123/73; PULSE 85; TEMP 36.6; O2SAT 95
[2016-06-25] MEDS: ACETAMINOPHEN 325 MG TAB PO PRN (16:57)
[2016-06-25 19:15] VITALS: BP_SYST 83; PULSE 77; TEMP 36.7; O2SAT 98
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
[2016-06-25] MEDS: TAMSULOSIN HCL 0.4 MG CAP PO SCH (21:18)
[2016-06-26 00:45] VITALS: BP 164/90; PULSE 92; TEMP 36.4; O2SAT 96
[2016-06-26] MEDS: HEPARIN SOD 5000 UNIT/0.5 ML CARP SQ SCH ×2 (05:43→07:57)
[2016-06-26] MEDS: LEVOTHYROXINE 100 MCG TAB PO SCH (05:43)
[2016-06-26 06:43] LABS: BUN/CREATININE RATIO 13.1 (10-20); CALCIUM 8.3 mg/dl (8.5-10.1); CREATININE 2.2 mg/dl (0.60-1.40); POTASSIUM 3.8 mmol/L (3.5-5.1)
[2016-06-26] MEDS: BOOST VANILLA PO SCH ×2 (07:54)
[2016-06-26] MEDS: METOPROLOL SUCC 50MG EXT REL TAB PO SCH (07:55)
[2016-06-26] MEDS: CEROVITE ADV FORMULA TAB PO SCH (07:56)
[2016-06-26] MEDS: LACTOBACILLUS ACIDOPHILUS (FLORANEX) TAB PO SCH (07:56)
[2016-06-26] MEDS: PANTOprazole SOD 40 MG TAB PO SCH (07:57)
[2016-06-26] MEDS ORDERED: ESCITALOPRAM OXALATE 10 MG TAB PO SCH (09:00)
[2016-06-26] MEDS ORDERED: NYSS/ PO (14:42)
[2016-06-26] MEDS ORDERED: SODI1TAB PO (14:50)
[2016-06-26] MEDS ORDERED: ESCI5TAB PO (14:56)
--- NOTE | 2016-06-26 14:57 | Discharge Summary ---
Discharge Summary Date of Service Jun 26, 2016. (Yadira Cantor PA-C) Discharge Summary Admission Date: Jun 23, 2016 at 11:20 Discharge Date: Jun 22, 2016 Discharge Disposition: Home (on hospice) Principal Diagnosis: Chest pain secondary to acute bronchitis Problems/Secondary Diagnoses: A. fib, hypertension, anxiety and PTSD, CKD stage III, BPH, GERD, h/o BCC of the face, h/o SCC of the skin, hypothyroidism and clonal protein disease, MGUS Immunizations: Have You Had Influenza Vaccine: No History of Tetanus Vaccine?: WW II History of Pneumococcal: Yes Pneumococcal Date: Feb 17, 2008 History of Hepatitis B Vaccine: No Procedures: Chest x-ray 06/22/16 IMPRESSION: No acute cardiopulmonary findings. LUMBAR SPINE 5 VIEWS 06/23/69 IMPRESSION: 1. No acute bony abnormality is seen involving the lumbosacral spine. 2. Osteopenia and lumbosacral spondylosis as above. Abdomen 2 view 06/22/16 IMPRESSION: 1. Large amount of well-formed stool seen within the rectum. 2. No evidence for bowel obstruction. CT of the brain without IV contrast 06/22/16 IMPRESSION: Senescent changes as above with no hemorrhage, mass effect, or evidence of acute territorial ischemia by CT criteria. 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 suspected multiple myeloma acute on chronic anemia chronic low back pain Consultations: PT, OT (Kai Clark MD) Medication Reconciliation New Medications: Albuterol (Ventolin Hfa) 60 Puffs/5400 Mcg Aers 1 PUFF INH Q4 PRN for SOB/Wheezing, #1 INHALER Escitalopram Oxalate (Lexapro) 5 Mg Tab 1 TAB PO DAILY for 30 Days, #30 TAB 0 Refills Nystatin (Nystatin Suspension) 1 Ml Susp 5 ML PO QID for 10 Days, #40 DOSE Sodium Chloride (Sodium Chloride) 1 Gm Tab 1 TAB PO DAILY for 7 Days, #7 TAB Continued Medications: Acetaminophen (Tylenol) 500 Mg Tab 500 MG PO TID PRN for Pain, TAB Cholecalciferol (D 1000) 1,000 Unit Tab 1000 UNIT PO 3XWK M/W/F Cyanocobalamin (Vitamin B12) 1,000 Mcg Tab 1 TAB PO 3XWK Fiber Laxative (Fiber Laxative) Ea 1 TAB PO DAILY Hydrocodone/Acetaminophen 5MG/325MG (Bowler 5MG/325MG) Tab 1 TABLET PO Q6 PRN for Pain Levothyroxine Sodium (Levothyroxine Sodium) 100 Mcg Tab 100 MCG PO QAM, TAB 3 Refills Metoprolol Succinate (Toprol Xl) 50 Mg Tabcr 25 MG PO DAILY, #30 TAB Pantoprazole (Pantoprazole Sodium) 40 Mg Tab 40 MG PO QAM Probiotic Product (Probiotic) 1 Cap Cap 1 CAP PO DAILY Tamsulosin Hcl (Flomax) 0.4 Mg Cap 0.4 MG PO QPM, CAP Discontinued Medications: Diphenhydramine Hcl (Benadryl Allergy) 25 Mg Cap 25 MG PO HS Levofloxacin (Levaquin) 500 Mg Tab 500 MG PO DAILY, #7 Discharge Exam The patient was seen and examined this morning. Patient reports feeling well. He appears to be a little tired this morning. His is present at bedside. She reports that he looks much better today compared to the last 2 days. Patient denies any shortness of breath, chest pain, flutter, palpitations, other acute complaints. ROS: Constitutional: No fever, chills, sweats, fatigue or weakness Eyes: No diplopia, no changes in vision ENT: No sore throat, tinnitus, or trouble swallowing Respiratory: No shortness of breath, No dyspnea at rest or on exertion, no cough or sputum Cardiovascular: No chest pain, palpitations, or flutter Abdomen: No pain, No constipation, No diarrhea, No nausea, No vomiting Musculoskeletal: No calf pain, No joint pain, No swelling Genitourinary : No dysuria or urinary frequency, No hematuria Neurologic: No numbness/tingling, no difficulty with ambulation, no sensory or motor deficits Psychiatric: No depression or anxiety symptoms Endocrine: No fatigue, No weight changes Integumentary: No itch, No rash PE: General: awake, alert, no apparent distress + appears tired Head: Normocephalic, atraumatic ENT: PERRL, EOMI, no pharyngeal exudate, mucous membranes moist Chest: Clear to auscultation, on room air, no adventitious breath sounds Cardiac: Regular rate and rhythm, no murmur, no JVD, normal peripheral pulses, good capillary refill Abdominal: NABS x 4 quadrants, soft, nontender to palpation, no rebound, guarding or tenderness Extremities: Normal inspection, no peripheral edema or erythema, calfs nontender to palpation Psych: Normal mood and affect Neuro: AAO x 3, strength intact bilaterally and related 5/5, no motor deficits, speech is clear, no peripheral sensory deficits (Yadira Cantor PA-C) Hospital Course H&P by Caitlyn Car PA-C History of Present Illness Source: patient, spouse ( at bedside), clinic records, hospital records This is an 89 y/o male with a history of A. fib, hypertension, anxiety and PTSD , CKD stage III, BPH, GERD, h/o BCC of the face, h/o SCC of the skin, hypothyroidism and clonal protein disease who presented to the ED on 06/22 with left-sided chest pain. The patient reports first experiencing left-sided chest pain/pressure around 2200 last evening prior to arrival. The pain radiated to his left arm. The patient went to sleep downstairs. He later woke up around 4: 00 AM with worsening chest pain, lightheadedness, shortness of breath, nausea, and weakness. The patient is typically able to ambulate without a cane or walker; however, after the onset of weakness, he had trouble getting up the stairs to call for his 's help. The patient also notes that last night his legs "felt like they weren't part of my body" and were numb. The patient's states that when he got upstairs, he seemed to become more confused. In the ambulance en route to the ED, the patient received 3 doses of nitroglycerin which did not help the chest pain. Currently the patient complains of a 2/10 dull chest pain/pressure on the left side of the chest. He is no longer short of breath. He does have intermittent nausea and lower abdominal pain. The patient was recently diagnosed with acute bronchitis and started taking Levaquin 500 mg PO qd on 06/18. The patient denies fevers, chills, sweats, palpitations, claudication, cough, wheezing, vomiting, dysuria, hematuria, urinary retention, and paralysis. Physical Exam Vital Signs Date Time Temp Pulse Resp B/P Pulse Ox O2 Delivery O2 Flow Rate FiO2 06/22/16 07:50 80 20 150/79 95 Room Air 06/22/16 06:45 83 18 152/74 96 Room Air 06/22/16 05:48 97 Room Air 06/22/16 05:48 36.7 86 18 153/86 97 Room Air 06/22/16 05:48 97 Room Air 06/22/16 05:47 90 General Appearance: WD/WN, no apparent distress Head: normocephalic, atraumatic Eyes: normal inspection, PERRL, EOMI ENT: normal ENT inspection, hearing grossly normal, pharynx normal Neck: supple, no JVD, trachea midline Respiratory/Chest: lungs clear, normal breath sounds, no respiratory distress, + decreased breath sounds (slightly diminished throughout but clear) Cardiovascular: regular rate, rhythm, no gallop, no murmur Abdomen/GI: normal bowel sounds, non tender, soft Extremities/Musculoskelatal: no calf tenderness, normal capillary refill, no pedal edema Neurologic/Psych: alert, normal mood/affect, oriented x 3 (oriented but seems easily confused) Skin: normal color, warm/dry, no rash Hospital course 89 y/o male with a history of A. fib, hypertension, anxiety and PTSD, CKD stage III, BPH, GERD, h/o BCC of the face, h/o SCC of the skin, hypothyroidism and clonal protein disease who presented to the ED on 06/22 with left-sided chest pain. Accompanying symptoms include lightheadedness, shortness of breath, weakness and nausea. Patient received 3 doses of nitroglycerin en route to the ED without any relief. Patient afebrile, vital signs stable. CXR shows no acute disease. EKG shows sinus rhythm and no acute ischemic changes. Initial cardiac enzymes negative. Hemoglobin 9.7, which is around patient's baseline. Sodium low at 129. Creatinine slightly elevated at baseline at 2.1. Metabolic encephalopathy secondary to hyponatremia - Pt appears to have short-term memory impairment worsening over past 6 months per - overall resolved at this time. SIADH - Sodium slightly low, will start the pt on salt tabs prior to discharge, Na+ 133 today - We'll start the patient on sodium tablets 1 g daily 7 days- PCP can continue or DC this medication at next follow-up - serum tah=546, urine iny=383, urine Na=88 Acute on Chronic Anemia MGUS - elevated IgG kappa in Feb 2012, also noticed an elevated albumin ~12 on PRP. 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 - Discussion was held with patient, and daughter(Lynda), regarding hospice. They are all in agreement that d/c on hospice would be the best thing. They already have approval from [facility] for hospice per CM. I have asked CM to come discuss any further questions with them. - POLST filled out today at bedside. Chronic Back Pain - Spinal xrays showing osteopenia throughout, degenerative disk disease of the lumbar spine. No lytic lesions as there is concern for multiple myeloma. Chest pain--patient recovering from acute bronchitis and had significant coughing for a week, was likely secondary to this. - Patient states that he had sternal chest burning, felt like indigestion - Cardiac biomarkers were negative 3 - EKGs q am and prn with chest pain- negative - Patient had an echo on 12/03/15 with a normal LVEF and no wall motion abnormalities AYESHA on CKD stage IV - Creatinine 2.2 today, likely 2.1-2.2 his new baseline. Continue to encourage oral hydration - pt is doing better with oral intake in general today than since admitted. Acute bronchitis--patient started on Levaquin on 06/18 - Finished course of Levaquin, no further symptoms or complaints regarding URI/ bronchitis Atrial fibrillation/HTN--currently in sinus rhythm. BP stable - Continue metoprolol succinate 25 mg PO qd Protein Calorie Malnutrition - Severe, continue boost, MVI - Passed speech eval at bedside on 06/23 Depression/Anxiety PTSD - Appreciate psychiatric recs and initiation of Lexapro 5 mg. [facility]. BPH -Continue Flomax 0.4 mg PO qhs Hypothyroidism -Continue Synthroid 100 g PO qd GERD -Continue pantoprazole 40 mg PO qd DVT ppx: Heparin 5000 units SC q8, TEDs, SCDs Code Status: DNR Disposition: Patient from home, discharged today Total Time Spent: Greater than 30 minutes This includes examination of the patient, discharge planning, medication reconciliation, and communication with other providers. (Yadira Cantor, TUAN) Attending Discharge Note & Attestation: Pt seen/examined, chart reviewed, and care plan d/w ERNIE Cantor on day of discharge. I agree with the foster components of her discharge summary. 89yo male with multiple medical problems who presented with chest discomfort likely due to recent acute bronchitis. Sodium was noted to be low at presentation. Shortly after admission he became encephalopathic, possibly due to the hyponatremia +/- hospital psychosis. CT head was negative. He was given supportive care for the encephalopathy. This resolved gradually over several days. The hyponatremia was ultimately felt to be due to SIADH. Fluid restriction & salt tabs were discussed with the family at discharge. Other issues addressed while here included his ongoing failure to thrive/ protein calorie malnutrition/weight loss in the setting of known MGUS as well as his major depression. The patient's history, labs, etc were highly concerning for a bone marrow process such as multiple myeloma. The patient made it very clear he did NOT want any work-up or treatment. With respect to the depression he WAS agreeable to starting low-dose lexapro. In light of his failing health, suspected multiple myeloma, depression, etc hospice was advised. He and his were agreeable to such. Home hospice has been set up at discharge. Discharge exam - gen - depressed, cacechtic, agitated/anxious neck - no JVD heart - RRR lungs - CTA b/l abd - soft, NT ext - no edema Kai Clark MD (Kai Clark MD) Discharge Instructions Please refer to the electronic Patient Visit Report (Discharge Instructions) for additional information. (Yadira Cantor PA-C) Follow-Up Follow up with your Primary Care Provider within 1 week. (Yadira Cantor PA-C) Additional Copies To Francis Vital M.D.
[2016-06-26 15:04] VITALS: BP 164/90; PULSE 92; TEMP 36.4; O2SAT 96
[2017-01-27] MEDS ORDERED: CRD200 PO (10:09)
[2017-01-27] MEDS ORDERED: METO-217 PO (12:39)
== END 2016-06-26 15:36 | disposition home health service (06) | DRG 643 ==
LOC: ENRESERVDT → ENRESERVTM → EDBD 05:38 → C.EDB 05:40 → C.MED 08:17 → OBSVTOIN 06-23 11:20 → C.MS2W 06-26 09:19
PROVIDERS: ADMIT Family Medicine; ATTEND Internal Medicine
DX: E22.2 Syndrome of inappropriate secretion of antidiuretic hormone (principal); G93.41 Metabolic encephalopathy; E43 Unspecified severe protein-calorie malnutrition; N18.4 Chronic kidney disease, stage 4 (severe); R64 Cachexia; Z68.1 Body mass index [BMI] 19.9 or less, adult; C90.00 Multiple myeloma not having achieved remission; F33.9 Major depressive disorder, recurrent, unspecified; J20.9 Acute bronchitis, unspecified; Z66 Do not resuscitate; F43.10 Post-traumatic stress disorder, unspecified; F41.9 Anxiety disorder, unspecified; D47.2 Monoclonal gammopathy; K59.00 Constipation, unspecified; M51.36 Other intervertebral disc degeneration, lumbar region; D63.0 Anemia in neoplastic disease; M85.88 Other specified disorders of bone density and structure, other site; I48.91 Unspecified atrial fibrillation; E03.9 Hypothyroidism, unspecified; I12.9 Hypertensive chronic kidney disease with stage 1 through stage 4 chronic kidney disease, or unspecified chronic kidney disease; K21.9 Gastro-esophageal reflux disease without esophagitis; N40.0 Benign prostatic hyperplasia without lower urinary tract symptoms; Z51.81 Encounter for therapeutic drug level monitoring; Z79.899 Other long term (current) drug therapy; Z87.01 Personal history of pneumonia (recurrent); Z85.828 Personal history of other malignant neoplasm of skin; Z87.891 Personal history of nicotine dependence; Z82.49 Family history of ischemic heart disease and other diseases of the circulatory system

== ENCOUNTER → 2016-07-03 | Outpatient (CLI) | payer OTHER, MEDICARE ==
[~2016-07-03] MED LIST changes: +CRD200 PO; -CYAN10005 PO; -DIPH25CA65 PO; +ESCI5TAB PO; -LEVO1TAB33 PO; -LPR25 PO; +METO-217 PO; -MULT-506 PO; -NITR0.4S UT; +NYSS/ PO; -PANT40TA PO; +PANT40TA2 PO; +PRVHFAIN INH; +SODI1TAB PO; -VSNOPS OPB
[2016-07-03 17:38] LABS: BASO % 0.2 %; BASO ABS # 0.01 K/uL (0-0.2); EOS % 0.3 %; HEMATOCRIT 25.2 % (42-52); IG% 0.2 %; LYMPH % 39.7 %; LYMPH ABS # 2.35 K/uL (1.2-3.4); MEAN CELL VOLUME 104.6 fL (80-100); MEAN CORPUSCULAR HEMOGLOBIN 35.3 pg (25-34); MEAN CORPUSCULAR HGB CONC 33.7 g/dl (32-36); MEAN PLATELET VOLUME 10.2 fL (7.4-10.4); NEUT % 46.6 %; PLATELET COUNT 174 K/uL (130-400); RED BLOOD COUNT 2.41 M/uL (4.7-6.1); WHITE BLOOD COUNT 5.92 K/uL (4.8-10.8)
[2016-07-03 17:48] LABS: BLOOD UREA NITROGEN 24 mg/dl (7-18); BUN/CREATININE RATIO 13.3 (10-20); CARBON DIOXIDE 26 mmol/L (21-32); CHLORIDE 102 mmol/L (98-107); GLUCOSE 127 mg/dl (70-99); POTASSIUM 4.3 mmol/L (3.5-5.1); SODIUM 134 mmol/L (136-145)
[2016-07-03 18:05] LABS: CALCIUM 8.7 mg/dl (8.5-10.1)
[2016-07-03 18:47] LABS: COMPLETE YES; ROULEAUX 1+
== END | disposition home or self-care (01) ==
LOC: C.LABBFT 11:55
PROVIDERS: ATTEND Physician Assistant Medical
DX: E87.1 Hypo-osmolality and hyponatremia (principal)

== ENCOUNTER → 2016-07-07 | Outpatient (CLI) | payer OTHER, MEDICARE ==
[2016-07-07 12:12] LABS: HEMATOCRIT 26.8 % (42-52); MEAN CELL VOLUME 103.9 fL (80-100); MEAN CORPUSCULAR HEMOGLOBIN 35.7 pg (25-34); MEAN CORPUSCULAR HGB CONC 34.3 g/dl (32-36); MEAN PLATELET VOLUME 10.4 fL (7.4-10.4); PLATELET COUNT 161 K/uL (130-400); RED BLOOD COUNT 2.58 M/uL (4.7-6.1); WHITE BLOOD COUNT 6.44 K/uL (4.8-10.8)
[2016-07-07 12:39] LABS: BASO % 0.2 %; BASO ABS # 0.01 K/uL (0-0.2); COMPLETE YES; EOS % 0.5 %; LYMPH ABS # 3.41 K/uL (1.2-3.4); MONO % 8.7 %; NEUT % 37.6 %; ROULEAUX 3+
[2016-07-07 12:48] LABS: BLOOD UREA NITROGEN 28 mg/dl (7-18); BUN/CREATININE RATIO 14.2 (10-20); CALCIUM 8.8 mg/dl (8.5-10.1); CARBON DIOXIDE 25 mmol/L (21-32); CHLORIDE 102 mmol/L (98-107); GLUCOSE 110 mg/dl (70-99); SODIUM 135 mmol/L (136-145)
== END | disposition home or self-care (01) ==
LOC: C.LABBFT 09:53
PROVIDERS: ATTEND Physician Assistant Medical
DX: R79.9 Abnormal finding of blood chemistry, unspecified (principal)

== ENCOUNTER → 2016-07-14 | Outpatient (CLI) | payer OTHER, MEDICARE ==
[2016-07-14 17:23] LABS: BASO % 0.2 %; BASO ABS # 0.01 K/uL (0-0.2); EOS % 0.6 %; HEMATOCRIT 23.9 % (42-52); IG% 0.2 %; LYMPH % 37.5 %; MEAN CELL VOLUME 104.8 fL (80-100); MEAN CORPUSCULAR HGB CONC 34.3 g/dl (32-36); MEAN PLATELET VOLUME 10.4 fL (7.4-10.4); NEUT % 46.5 %; PLATELET COUNT 156 K/uL (130-400); RED BLOOD COUNT 2.28 M/uL (4.7-6.1)
[2016-07-14 17:52] LABS: BLOOD UREA NITROGEN 33 mg/dl (7-18); BUN/CREATININE RATIO 17.4 (10-20); CALCIUM 8.9 mg/dl (8.5-10.1); CARBON DIOXIDE 28 mmol/L (21-32); CHLORIDE 102 mmol/L (98-107); GLUCOSE 117 mg/dl (70-99); POTASSIUM 4.1 mmol/L (3.5-5.1); SODIUM 137 mmol/L (136-145)
[2016-07-14 18:39] LABS: COMPLETE YES; ROULEAUX 2+
== END | disposition home or self-care (01) ==
LOC: C.LABBFT 11:23
PROVIDERS: ATTEND Physician Assistant Medical
DX: R79.9 Abnormal finding of blood chemistry, unspecified (principal)

== ENCOUNTER → 2016-07-18 | Outpatient (CLI) | payer OTHER, MEDICARE ==
[2016-07-18 12:31] LABS: HEMATOCRIT 25.4 % (42-52); MEAN CELL VOLUME 105.8 fL (80-100); MEAN CORPUSCULAR HEMOGLOBIN 35.4 pg (25-34); MEAN CORPUSCULAR HGB CONC 33.5 g/dl (32-36); MEAN PLATELET VOLUME 10.5 fL (7.4-10.4); PLATELET COUNT 185 K/uL (130-400); WHITE BLOOD COUNT 6.45 K/uL (4.8-10.8)
[2016-07-18 13:10] LABS: BASO % 0.2 %; BASO ABS # 0.01 K/uL (0-0.2); COMPLETE YES; EOS % 1.1 %; IG% 0.2 %; LYMPH % 50.7 %; LYMPH ABS # 3.27 K/uL (1.2-3.4); MONO % 10.2 %; NEUT % 37.6 %; ROULEAUX 1+
== END | disposition home or self-care (01) ==
LOC: C.LABBFT 09:14
PROVIDERS: ATTEND Physician Assistant Medical
DX: D64.9 Anemia, unspecified (principal)

== ENCOUNTER → 2016-07-28 | Outpatient (CLI) | payer OTHER, MEDICARE ==
[2016-07-28 17:22] LABS: BASO % 0.1 %; BASO ABS # 0.01 K/uL (0-0.2); EOS % 0.6 %; HEMATOCRIT 24.2 % (42-52); IG% 0.3 %; LYMPH % 43.7 %; LYMPH ABS # 3.16 K/uL (1.2-3.4); MEAN CELL VOLUME 105.7 fL (80-100); MEAN CORPUSCULAR HEMOGLOBIN 35.4 pg (25-34); MEAN CORPUSCULAR HGB CONC 33.5 g/dl (32-36); MEAN PLATELET VOLUME 10.8 fL (7.4-10.4); MONO % 12.3 %; PLATELET COUNT 173 K/uL (130-400); RED BLOOD COUNT 2.29 M/uL (4.7-6.1); WHITE BLOOD COUNT 7.23 K/uL (4.8-10.8)
[2016-07-28 17:42] LABS: COMPLETE YES
== END | disposition home or self-care (01) ==
LOC: C.LABBFT 12:33
PROVIDERS: ATTEND Internal Medicine
DX: D64.9 Anemia, unspecified (principal)